=== PATIENT | female | born 1985 | race African-American/Black ===

== ENCOUNTER 2018-07-07 19:32 | Emergency (ER) | payer OTHER ==
[~2018-07-07] VITALS: Ht 165.1 cm; Wt 95.3 kg
[~2018-07-07 19:32] MED LIST: ACTICIN 5% CREA60 G1 TOP; AMOXICILLIN 50500 M1 PO; APAP/CODEINE ELI5 M1 OR; CIPROFLOXACIN500 M1 PO; MACROBID 100 M100 M1 PO; MACROBID 100 M100 M2 PO; MULTIVITAMINS1 EAC7 PO; NAPROSYN500 MG PO; NOHOMEMEDICATIONS; PEPCID40 MG PO; PHENERGAN 25 MG25 M1 PO; PHENERGAN50 MG RC; PREDNISONE 20 M20 M1 PO; PROVENTIL IH; PYRIDIUM200 MG PO; ULTRAM 50MG TAB50 MG PO; UNICOMPLEX M TA1 TA1 PO; VALIUM5 MG PO; ZOFRAN ODT4 MG PO; ZOFRAN4 MG PO; ZPAK PO
[2018-07-07] MEDS ORDERED: NAPROSYN500 MG PO (20:31)
[2018-07-07 20:49] VITALS: BP 140/70
== END 2018-07-07 20:50 | disposition home or self-care (01) ==
LOC: ER 19:32
DX: S93.492A Sprain of other ligament of left ankle, initial encounter (principal); Z90.49 Acquired absence of other specified parts of digestive tract; Z98.84 Bariatric surgery status; Z91.041 Radiographic dye allergy status; X58.XXXA Exposure to other specified factors, initial encounter; Y93.89 Activity, other specified; Y92.89 Other specified places as the place of occurrence of the external cause; Y99.8 Other external cause status

== ENCOUNTER 2019-03-12 18:42 | Emergency (ER) | payer OTHER ==
[~2019-03-12] VITALS: Ht 165.1 cm; Wt 83.9 kg
[2019-03-12] MEDS ORDERED: SYNTHROID50 MCG PO (18:55)
[2019-03-12 19:47] LABS: ABSOLUTE NEUTROPHILS 6.2 thou/uL (1.4-8.2); BASOPHILS 0.6 % (0.0-2.0); EOSINOPHILS 2.7 % (0.0-3.0); HEMATOCRIT 34.2 % (37.0-47.0); HEMOGLOBIN 11.5 gm/dL (12.0-15.0); LYMPHOCYTES 18.9 % (24.0-44.0); MCH 29.7 pg (26.0-34.0); MCHC 33.6 g/dL (28.0-37.0); MCV 88.5 fL (80.0-100.0); MONOCYTES 6.3 % (1.0-8.0); PLATELET COUNT 275 thou/uL (150-400); POLYS 71.5 % (36.0-66.0); RBC 3.87 mil/uL (4.20-5.00); WBC 8.7 thou/uL (4.0-11.0)
[2019-03-12 19:56] LABS: ANION GAP 8 mmol/L (7-16); BUN 10 mg/dL (7-18); CALCIUM 8.7 mg/dL (8.5-10.1); CHLORIDE 104 mmol/L (98-107); CO2 25 mmol/L (21-32); GLUCOSE 87 mg/dL (74-106); POTASSIUM 3.9 mmol/L (3.5-5.1); SODIUM 137 mmol/L (136-145)
[2019-03-12 20:04] LABS: TROPONIN-I <0.06 ng/mL (<0.06)
[2019-03-12] MEDS ORDERED: TESSALON PERLE100 MG PO (20:53)
[2019-03-12 21:25] VITALS: BP 136/72
--- NOTE | 2019-03-14 11:41 | EKG ---
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 <ELECTRONICALLY SIGNED> By: Reinaldo Greenfield MD 03/14/19 1140 [id number] 185 Reinaldo Greenfield MD /EPI
== END 2019-03-12 21:26 | disposition home or self-care (01) ==
LOC: ER 18:42
PROVIDERS: Nurse Practitioner
DX: J06.9 Acute upper respiratory infection, unspecified (principal); R60.0 Localized edema; Z90.49 Acquired absence of other specified parts of digestive tract; Z91.041 Radiographic dye allergy status; Z88.8 Allergy status to other drugs, medicaments and biological substances

== ENCOUNTER 2019-05-26 20:04 | Emergency (ER) | payer OTHER ==
[~2019-05-26] VITALS: Ht 165.1 cm; Wt 84.4 kg
[~2019-05-26 20:04] MED LIST changes: +SYNTHROID50 MCG PO; +TESSALON PERLE100 MG PO
[2019-05-26 20:23] LABS: URINE BILIRUBIN NEGATIVE (Negative); URINE BLOOD NEGATIVE (Negative); URINE CLARITY CLEAR; URINE COLOR YELLOW; URINE GLUCOSE-RANDOM* NEGATIVE (Negative); URINE KETONES NEGATIVE (Negative); URINE LEUKOCYTES-REFLEX NEGATIVE (Negative); URINE NITRITE-REFLEX NEGATIVE (Negative); URINE PROTEIN (DIPSTICK) NEGATIVE (Negative); URINE SPECIFIC GRAVITY >= 1.030 (1.005-1.035); URINE UROBILINOGEN 0.2 E.U./dl (0.2-1.0)
[2019-05-26 21:32] LABS: ABSOLUTE NEUTROPHILS 7.2 thou/uL (1.4-8.2); BASOPHILS 0.4 % (0.0-2.0); EOSINOPHILS 1.2 % (0.0-3.0); HEMATOCRIT 36.2 % (37.0-47.0); HEMOGLOBIN 11.7 gm/dL (12.0-15.0); LYMPHOCYTES 19.7 % (24.0-44.0); MCH 28.7 pg (26.0-34.0); MCHC 32.4 g/dL (28.0-37.0); MCV 88.8 fL (80.0-100.0); MONOCYTES 5.7 % (1.0-8.0); PLATELET COUNT 281 thou/uL (150-400); RBC 4.07 mil/uL (4.20-5.00); RDW 14.2 % (10.5-14.5); WBC 9.9 thou/uL (4.0-11.0)
[2019-05-26 21:41] LABS: ANION GAP 8 mmol/L (7-16); BUN 15 mg/dL (7-18); CALCIUM 8.4 mg/dL (8.5-10.1); CHLORIDE 104 mmol/L (98-107); CO2 25 mmol/L (21-32); CREATININE 0.8 mg/dL (0.6-1.0); GLUCOSE 75 mg/dL (74-106); POTASSIUM 3.5 mmol/L (3.5-5.1); SODIUM 137 mmol/L (136-145)
[2019-05-26 21:47] LABS: ALBUMIN 3.3 g/dL (3.4-5.0); AMYLASE 67 U/L (25-115); DIRECT BILIRUBIN < 0.1 mg/dL (<0.1-0.3); LIPASE 267 U/L (73-393); SGOT 15 U/L (15-37); SGPT 12 U/L (30-65); TOTAL BILIRUBIN 0.3 mg/dL (<0.1-1.0); TOTAL PROTEIN 7.3 g/dL (6.4-8.2)
[2019-05-26] MEDS ORDERED: ULTRAM 50MG TAB50 MG PO (23:40)
[2019-05-27 00:09] VITALS: BP 105/61
== END 2019-05-27 00:10 | disposition home or self-care (01) ==
LOC: ER 20:04
PROVIDERS: Emergency Medicine; Physician Assistant
DX: N83.292 Other ovarian cyst, left side (principal); N83.201 Unspecified ovarian cyst, right side; N92.6 Irregular menstruation, unspecified; R10.31 Right lower quadrant pain; Z90.49 Acquired absence of other specified parts of digestive tract; Z91.041 Radiographic dye allergy status; Z88.8 Allergy status to other drugs, medicaments and biological substances